=== PATIENT | female | born 1960 | race Caucasian/White ===

== ENCOUNTER → 2019-01-02 10:07 | Outpatient (CLI) | payer OTHER, SELFPAY ==
--- NOTE | 2019-01-02 | DI.MG.S_ITS ---
BILATERAL DIGITAL SCREENING MAMMOGRAM 3D/2D WITH CAD: 01/02/2019 CLINICAL: Routine screening. Comparison is made to exams dated: 07/06/2016 mammogram - [facility], 03/02/2015 mammogram, and 01/12/2014 mammogram - [facility]. There are scattered fibroglandular elements in both breasts. Current study was also evaluated with a Computer Aided Detection (CAD) system. No significant masses, calcifications, or other findings are seen in either breast. There has been no significant interval change. IMPRESSION: NEGATIVE There is no mammographic evidence of malignancy. A 1 year screening mammogram is recommended. This exam was interpreted at Station ID: [id number]. NOTE: For mammograms, a report in lay terms will be sent to the patient. Approximately 15% of breast malignancies will not be visualized mammographically. In the management of a palpable breast mass, a negative mammogram must not discourage biopsy of a clinically suspicious lesion. Electronically Signed By: Floyd lucero/rosa m:01/02/2019 15:06:30 copy to: Shaquille Roldan letter sent: Normal Exam ACR BI-RADS Category 1: Negative 3341F
== END ==
PROVIDERS: Visit Provider Naturopath
DX: Z12.31 Encounter for screening mammogram for malignant neoplasm of breast (principal); Z78.0 Asymptomatic menopausal state; Z82.62 Family history of osteoporosis
CPT/HCPCS: 77063; 77067; 77080

== ENCOUNTER → 2020-02-27 13:42 | Outpatient (CLI) | payer OTHER, SELFPAY ==
[2020-02-27] MEDS: COVID-19 VACC(MODERNA-1)/PF 100 MCG/0.5 ML VIAL IM (14:01)
== END ==
PROVIDERS: Visit Provider Internal Medicine
DX: Z23 Encounter for immunization (principal)
CPT/HCPCS: 0011A; 91301

== ENCOUNTER → 2020-03-25 14:18 | Outpatient (CLI) | payer OTHER, SELFPAY ==
[2020-03-25] MEDS: COVID-19 VACC #2, MRNA(MOD) 100 MCG/0.5 ML VIAL IM (14:23)
== END ==
PROVIDERS: Visit Provider Internal Medicine
DX: Z23 Encounter for immunization (principal)
CPT/HCPCS: 0012A; 91301

== ENCOUNTER → 2020-10-29 08:15 | Outpatient (CLI) | payer OTHER, SELFPAY ==
--- NOTE | 2020-10-29 08:17 | DI.US.S_ITS ---
PROCEDURE: US PELVIC COMPLETE INDICATIONS: LEFT PELVIC PAIN TECHNIQUE: Real-time scanning was performed of the pelvic organs, with image documentation. Additional endovaginal scanning was necessary due to incomplete visualization of the adnexal and endometrial structures by transabdominal scanning. COMPARISON: None. FINDINGS: Uterus: The uterus measures 8.3 x 4.0 x 5.3 cm. Endometrial thickness is 7.1 mm. Uterine echotexture is normal. There is a fluid collection with debris measuring 1.9 x 2.1 x 2.5 cm adjacent to a scar which could be a small seroma but is likely no significance.. Ovaries: The right ovary is not visualized. The left ovary measures 1.7 x 1.6 x 2.1 cm an has a cyst measuring 1.7 x 1.3 x 1.7 cm with a thin septation. Other: No pathologic free abdominal or pelvic fluid. IMPRESSION: 1. Simple left ovarian cyst. 2. No acute abnormality of the pelvis. 3. No hernia or mass is noted in the left lower quadrant. Dictated by: Cachorro Burks M.D. on 10/29/2020 at 16:59 Approved by: Cachorro Burks M.D. on 10/29/2020 at 17:06
== END ==
PROVIDERS: PCP Registered Nurse Diabetes Educator; Referring Provider Registered Nurse Diabetes Educator; Visit Provider Registered Nurse Diabetes Educator
DX: R10.2 Pelvic and perineal pain (principal); N83.292 Other ovarian cyst, left side
CPT/HCPCS: 76830; 76856

== ENCOUNTER → 2020-11-27 10:46 | Outpatient (CLI) | payer OTHER, SELFPAY ==
--- NOTE | 2020-11-27 | DI.MG.S_ITS ---
BILATERAL DIGITAL SCREENING MAMMOGRAM 3D/2D WITH CAD: 11/27/2020 CLINICAL: Routine screening. Comparison is made to exams dated: 07/06/2016 mammogram - [facility], 03/02/2015 mammogram, 01/12/2014 mammogram, 09/13/2012 mammogram, 09/20/2012 mammogram - [facility], and 01/02/2019 mammogram - [facility]. There are scattered fibroglandular elements in both breasts. Current study was also evaluated with a Computer Aided Detection (CAD) system. No significant masses, calcifications, or other findings are seen in either breast. There has been no significant interval change. IMPRESSION: NEGATIVE There is no mammographic evidence of malignancy. A 1 year screening mammogram is recommended. This exam was interpreted at Station ID: [id number]. NOTE: For mammograms, a report in lay terms will be sent to the patient. Approximately 15% of breast malignancies will not be visualized mammographically. In the management of a palpable breast mass, a negative mammogram must not discourage biopsy of a clinically suspicious lesion. Electronically Signed By: Endy lopez/rosa m:11/29/2020 08:38:02 copy to: Shaquille Roldan letter sent: Normal Exam ACR BI-RADS Category 1: Negative 3341F
== END ==
PROVIDERS: PCP Registered Nurse Diabetes Educator; Referring Provider Registered Nurse Diabetes Educator; Visit Provider Registered Nurse Diabetes Educator
DX: Z12.31 Encounter for screening mammogram for malignant neoplasm of breast (principal)
CPT/HCPCS: 77063; 77067

== ENCOUNTER → 2022-03-30 08:22 | Outpatient (CLI) | payer OTHER, SELFPAY ==
[2022-03-30 09:13] LABS: Hemoglobin 13.3 g/dL (12.0-16.0); Mean Corpuscular HGB Conc 33.2 % (30-36); Mean Corpuscular Hemoglobin 30.2 PG (26-34); Platelet Count 315 X10^3/uL (150-400); Red Cell Distribution Width 13.3 % (11.6-14.8)
[2022-03-30 09:31] LABS: Alanine Aminotransferase 29 IU/L (<35); Albumin Globulin Ratio 1.4 (1.0-2.8); Alkaline Phosphatase 80 U/L (38-126); Aspartate Aminotransferase 24 IU/L (14-36); BUN Creatinine Ratio 17.5 (6-22); Bilirubin Total 0.3 mg/dL (0.2-1.3); Blood Urea Nitrogen 14 mg/dL (7-17); Calcium 8.9 mg/dL (8.4-10.2); Carbon Dioxide 27 mmol/L (22-32); Chloride 100 mmol/L (98-107); Cholesterol 220 mg/dL (140-199); Estimated Glomerular Filt Rate > 60 mL/min (>60); Globulin 2.9 g/dL (1.7-4.1); Glucose 87 mg/dL (80-110); HDL Cholesterol 66 mg/dL (40-60); HEMOLYSIS < 15 (0-50); LDL Cholesterol Calculated 105 mg/dL (<100); Potassium 4.4 mmol/L (3.4-5.1); Sodium 134 mmol/L (137-145); Total Protein 6.9 g/dL (6.3-8.2); Triglycerides 245 mg/dL (35-150)
[2022-03-30 10:03] LABS: Ferritin 32 ng/mL (11-264)
[2022-03-31 15:12] LABS: Fecal Immunochemical Test Negative (Negative)
== END ==
PROVIDERS: PCP Registered Nurse Diabetes Educator; Referring Provider Registered Nurse Diabetes Educator; Visit Provider Registered Nurse Diabetes Educator
DX: Z00.00 Encounter for general adult medical examination without abnormal findings (principal); Z12.11 Encounter for screening for malignant neoplasm of colon
CPT/HCPCS: 36415; 80053; 80061; 82274; 82728; 85027

== ENCOUNTER → 2022-05-09 14:56 | Outpatient (CLI) | payer OTHER, SELFPAY ==
--- NOTE | 2022-05-09 14:57 | DI.MG.S_ITS ---
BILATERAL DIGITAL SCREENING MAMMOGRAM 3D/2D WITH CAD: 05/09/2022 CLINICAL: Routine screening. Comparison is made to exams dated: 11/27/2020 mammogram, 01/02/2019 mammogram, and 07/06/2016 mammogram - [facility]. There are scattered areas of fibroglandular density in both breasts (category b / 25%-50% glandular tissue). Current study was also evaluated with a Computer Aided Detection (CAD) system. No significant masses, calcifications, or other findings are seen in either breast. There has been no significant interval change. IMPRESSION: NEGATIVE There is no mammographic evidence of malignancy. A 1 year screening mammogram is recommended. Based on the Tyrer Cuzick model (a risk assessment model) the patient's lifetime risk is 15.1% and her 10 year risk is 6.6%. According to the ACR, ACS, and NCCN guidelines, an annual breast MRI exam along with mammogram is recommended if the patient's lifetime risk is 20% or greater. This exam was interpreted at Station ID: [id number]. NOTE: For mammograms, a report in lay terms will be sent to the patient. Approximately 15% of breast malignancies will not be visualized mammographically. In the management of a palpable breast mass, a negative mammogram must not discourage biopsy of a clinically suspicious lesion. Electronically Signed By: Klaus rodriguez/rosa m:05/10/2022 07:24:15 copy to: Shaquille Roldan letter sent: Normal Exam ACR BI-RADS Category 1: Negative 3341F
--- NOTE | 2022-05-09 14:57 | DI.US.S_ITS ---
PROCEDURE: US PELVIC COMPLETE INDICATIONS: reeval L pelvic pain/ovarian cyst TECHNIQUE: Real-time scanning was performed of the pelvic organs, with image documentation. Additional endovaginal scanning was necessary due to incomplete visualization of the adnexal and endometrial structures by transabdominal scanning. COMPARISON: [facility], US, US PELVIC COMPLETE, 10/29/2020, 8:33. FINDINGS: Uterus: Uterus is anteverted and normal in size at 8.7 x 4.2 x 4.9 cm. The myometrium is heterogeneous. The endometrium measures 5 mm combined thickness. Trace fluid within the endocervical canal. Ovaries: Right ovary is not visualized due to overlying bowel gas. The left ovary measures 3.2 x 1.4 x 2.1 cm, with a calculated ovarian volume of 5 cc. Similar anechoic right ovarian cystic lesion with mildly thickened internal septations, measuring 3.2 x 1.4 x 2.1 centimeter, previously 1.7 x 1.3 x 1.7 centimeter Other: No pathologic free abdominal or pelvic fluid. IMPRESSION: Interval growth of the left ovarian cystic lesion, containing mildly thickened internal septations. Mucinous malignancy not entirely excluded based on growth and appearance. Consider gynecologic oncology consultation. We strive to produce accurate, complete, and clear reports of imaging services. To assist us in improving patient care, this report was composed using standard report templates and voice recognition software. Therefore, it may contain abnormal punctuation, insertions and/or omissions. Occasional wrong-word or sound-alike substitutions may occur. Though we review the report and make efforts to correct it, we do recommend that the report be read carefully in proper context to recognize any text inaccuracies. Dictated by: Rangel Ochoa M.D. on 05/09/2022 at 15:50 Approved by: Rangel Ochoa M.D. on 05/09/2022 at 15:54
== END ==
PROVIDERS: PCP Registered Nurse Diabetes Educator; Referring Provider Registered Nurse Diabetes Educator; Visit Provider Registered Nurse Diabetes Educator
DX: Z12.31 Encounter for screening mammogram for malignant neoplasm of breast (principal); R10.2 Pelvic and perineal pain; N83.291 Other ovarian cyst, right side
CPT/HCPCS: 76830; 76856; 77063; 77067

== ENCOUNTER → 2022-05-23 11:53 | Outpatient (CLI) | payer OTHER, SELFPAY ==
[2022-05-23 12:53] LABS: Lactate Dehydrogenase 217 U/L (120-246)
[2022-05-23 13:24] LABS: Cancer Antigen 125 6.4 U/mL (0-35)
[2022-05-23 13:25] LABS: Carcinoembryonic Antigen < 0.3 ng/mL (0.1-3.0)
[2022-05-24 15:46] LABS: Absolute CD 4 Helper 846 /uL (359-1519); Basophils (Absolute) 0.1 x10E3/uL (0.0-0.2); Eosinophils 3 % (Not Estab.); Eosinophils (Absolute) 0.2 x10E3/uL (0.0-0.4); Hemoglobin 12.9 g/dL (11.1-15.9); Immature Granulocytes 0 % (Not Estab.); Lymphocytes 24 % (Not Estab.); Lymphocytes (Absolute) 1.5 x10E3/uL (0.7-3.1); MCHC 30.4 pg (26.6-33.0); MCHC 33.9 g/dL (31.5-35.7); MCV 89 fL (79-97); Monocytes 6 % (Not Estab.); Monocytes (Absolute) 0.4 x10E3/uL (0.1-0.9); Neutrophils 66 % (Not Estab.); Neutrophils (Absolute) 4.3 x10E3/uL (1.4-7.0); Percent CD 4 Pos Lymph 56.4 % (30.8-58.5); Platelets 360 x10E3/uL (150-450); RDW 12.9 % (11.7-15.4); Red Blood Cells 4.25 x10E6/uL (3.77-5.28); White Blood Cells 6.5 x10E3/uL (3.4-10.8)
[2022-05-26 11:34] LABS: Inhibin B <7.0 pg/mL (0.0-16.9)
== END ==
PROVIDERS: PCP Registered Nurse Diabetes Educator; Referring Provider Registered Nurse Diabetes Educator; Visit Provider Registered Nurse Diabetes Educator
DX: C56.9 Malignant neoplasm of unspecified ovary (principal)
CPT/HCPCS: 36415; 82378; 83520; 83615; 86304; 86361

== ENCOUNTER → 2022-12-04 13:21 | Outpatient (CLI) | payer OTHER, SELFPAY ==
[2022-12-06 19:42] LABS: Anti Thyroglobulin Antibody <1.0 IU/mL (0.0-0.9); Thyroid Peroxidase Antibodies <9 IU/mL (0-34)
== END ==
PROVIDERS: PCP Registered Nurse Diabetes Educator; Referring Provider Naturopath; Visit Provider Naturopath
DX: N95.1 Menopausal and female climacteric states (principal); G47.00 Insomnia, unspecified; E78.5 Hyperlipidemia, unspecified
CPT/HCPCS: 36415; 86376; 86800

== ENCOUNTER → 2023-04-21 09:37 | Outpatient (CLI) | payer OTHER, SELFPAY ==
[2023-04-21 10:20] LABS: Add Manual Diff / Slide Review NO; Basophils Absolute Auto 100 /uL (0-100); Basophils Percent Auto 1.3 % (0-2); Eosinophils Absolute Auto 200 /uL (0-450); Eosinophils Percent Auto 3.7 % (2-4); Hematocrit 40.6 % (36-46); Hemoglobin 13.5 g/dL (12.0-16.0); Lymphocytes Absolute Auto 1800 /uL (1100-4500); Lymphocytes Percent Auto 31.8 % (25-40); Mean Corpuscular HGB Conc 33.3 % (30-36); Mean Corpuscular Volume 90.1 fL (80-100); Monocytes Absolute Auto 400 /uL (0-900); Monocytes Percent Auto 7.6 % (3-14); Neutrophils Absolute Auto 3100 /uL (1500-7000); Neutrophils Percent Auto 55.6 % (50-75); Platelet Count 321 X10^3/uL (150-400); Red Blood Cell Count 4.51 X10^6/uL (4.0-5.2); Red Cell Distribution Width 13.4 % (11.6-14.8); White Blood Cell Count 5.6 X10^3/uL (4.5-11.0)
[2023-04-21 10:28] LABS: Alanine Aminotransferase 35 IU/L (<35); Albumin 4.2 g/dL (3.5-5.0); Albumin Globulin Ratio 1.4 (1.0-2.8); Alkaline Phosphatase 88 U/L (38-126); Aspartate Aminotransferase 27 IU/L (14-36); BUN Creatinine Ratio 19.1 (6-22); Bilirubin Total 0.6 mg/dL (0.2-1.3); Blood Urea Nitrogen 17 mg/dL (7-17); Calcium 9.6 mg/dL (8.4-10.2); Carbon Dioxide 28 mmol/L (22-32); Chloride 104 mmol/L (98-107); Cholesterol 233 mg/dL (140-199); Estimated Glomerular Filt Rate > 60 mL/min (>60); Glucose 95 mg/dL (80-110); HDL Cholesterol 79 mg/dL (40-60); HEMOLYSIS < 15 (0-50); LDL Cholesterol Calculated 124 mg/dL (<100); Potassium 4.5 mmol/L (3.4-5.1); Sodium 136 mmol/L (137-145); Total Protein 7.2 g/dL (6.3-8.2); Triglycerides 149 mg/dL (35-150)
[2023-04-21 10:29] LABS: Hemoglobin A1C% w Est Avg Glu 5.4 % (4.0-6.0)
[2023-04-21 10:48] LABS: Free T4, Direct Thyroxine 1.32 ng/dL (0.78-2.19)
[2023-04-21 11:01] LABS: TSH w/ Reflex to FT4 1.23 uIU/mL (0.47-4.68); Thyroid Stimulating Hormone 1.23 uIU/mL (0.47-4.68)
[2023-04-21 11:04] LABS: Ferritin 33 ng/mL (11-264)
[2023-04-21 11:36] LABS: Folate 11.5 ng/mL (2.76-20.0); Vitamin B12 965 pg/mL (239-931)
[2023-04-21 12:17] LABS: Free T3, Triiodothyronine Free 3.67 pg/mL (2.77-5.27)
[2023-04-21 12:49] LABS: T7 (Free Thyroxine Index) 3.67 (1.65-3.89); Triiodothryronine T3 Uptake 28.7 % (23.5-40.5)
== END ==
LOC: LAB 09:40
PROVIDERS: PCP Registered Nurse Diabetes Educator; Referring Provider Naturopath; Visit Provider Naturopath
DX: N95.1 Menopausal and female climacteric states (principal); E03.9 Hypothyroidism, unspecified; E78.5 Hyperlipidemia, unspecified; G47.00 Insomnia, unspecified
CPT/HCPCS: 36415; 80053; 80061; 82607; 82728; 82746; 83036; 84436; 84439; 84443; 84479; 84481; 85025

== ENCOUNTER → 2023-05-11 15:11 | Outpatient (CLI) | payer OTHER, SELFPAY ==
--- NOTE | 2023-05-11 15:12 | DI.MG.S_ITS ---
BILATERAL DIGITAL SCREENING MAMMOGRAM 3D/2D WITH CAD: 05/11/2023 CLINICAL: Routine screening. Comparison is made to exams dated: 05/09/2022 mammogram, 11/27/2020 mammogram, and 01/02/2019 mammogram - [facility]. There are scattered areas of fibroglandular density in both breasts (category b / 25%-50% glandular tissue). Current study was also evaluated with a Computer Aided Detection (CAD) system. No significant masses, calcifications, or other findings are seen in either breast. There has been no significant interval change. IMPRESSION: NEGATIVE There is no mammographic evidence of malignancy. A 1 year screening mammogram is recommended. Based on the Tyrer Cuzick model (a risk assessment model) the patient's lifetime risk is 15.0% and her 10 year risk is 6.7%. According to the ACR, ACS, and NCCN guidelines, an annual breast MRI exam along with mammogram is recommended if the patient's lifetime risk is 20% or greater. This exam was interpreted at Station ID: [id number]. NOTE: For mammograms, a report in lay terms will be sent to the patient. Approximately 15% of breast malignancies will not be visualized mammographically. In the management of a palpable breast mass, a negative mammogram must not discourage biopsy of a clinically suspicious lesion. Electronically Signed By: Mar ochoa/rosa m:05/11/2023 16:56:45 copy to: Shaquille Roldan letter sent: Normal Exam ACR BI-RADS Category 1: Negative 3341F
== END ==
LOC: MAMMO 15:12
PROVIDERS: PCP Registered Nurse Diabetes Educator; Referring Provider Registered Nurse Diabetes Educator; Visit Provider Registered Nurse Diabetes Educator
DX: Z12.31 Encounter for screening mammogram for malignant neoplasm of breast (principal); R92.323 Mammographic fibroglandular density, bilateral breasts
CPT/HCPCS: 77063; 77067

== ENCOUNTER → 2023-06-22 11:14 | Outpatient (CLI) | payer OTHER, SELFPAY ==
--- NOTE | 2023-06-22 11:15 | DI.US.S_ITS ---
PROCEDURE: US PELVIC COMPLETE INDICATIONS: f/u cyst TECHNIQUE: Real-time scanning was performed of the pelvic organs, with image documentation. Additional endovaginal scanning was necessary due to incomplete visualization of the adnexal and endometrial structures by transabdominal scanning. COMPARISON: [facility], , PELVIC COMPLETE, 10/29/2020, 8:33. [facility], , PELVIC COMPLETE, 05/09/2022, 15:05. FINDINGS: Difficult exam due to overlying bowel gas. Uterus: Uterus is anteverted and normal in size at 9.2 x 6.2 x 3.9 cm. The myometrium is homogeneous. The endometrium measures 6 mm combined thickness. There is trace fluid in the lower uterine segment/endocervical canal. Ovaries: Ovaries are only visualized on trans abdominal scanning. The right ovary measures 3.3 x 2.4 x 1.4 cm, with a calculated ovarian volume of 5.8 cc. The left ovary measures 3.7 x 1.7 x 1.6 cm, with a calculated ovarian volume of 5.3 cc. The ovaries have a normal sonographic appearance. The complex cyst in the left ovary seen on the last exam is no longer visualized on the current exam. Less than 12 follicles can be seen in each ovary. No adnexal masses are seen. Other: No pathologic free abdominal or pelvic fluid. IMPRESSION: 1. Complex cyst in the left ovary seen on the last exam is no longer visualized. Ovaries, however, are only seen on the transabdominal scanning. 2. Trace amount of fluid in the lower uterine segment/endocervical canal. 3. Difficult exam due to abundant bowel gas. We strive to produce accurate, complete, and clear reports of imaging services. To assist us in improving patient care, this report was composed using standard report templates and voice recognition software. Therefore, it may contain abnormal punctuation, insertions and/or omissions. Occasional wrong-word or sound-alike substitutions may occur. Though we review the report and make efforts to correct it, we do recommend that the report be read carefully in proper context to recognize any text inaccuracies. Dictated by: Elena Bah M.D. on 06/23/2023 at 7:32 Approved by: Elena Bah M.D. on 06/24/2023 at 9:12
== END ==
PROVIDERS: PCP Registered Nurse Diabetes Educator; Referring Provider Registered Nurse Diabetes Educator; Visit Provider Registered Nurse Diabetes Educator
DX: N83.209 Unspecified ovarian cyst, unspecified side (principal); R14.3 Flatulence
CPT/HCPCS: 76830; 76856

== ENCOUNTER → 2023-07-26 07:08 | Outpatient (CLI) | payer OTHER, SELFPAY ==
--- NOTE | 2023-07-26 07:09 | DI.US.S_ITS ---
PROCEDURE: US PELVIC COMPLETE INDICATIONS: F/u u/s; previous u/s poorly visualized due to gas TECHNIQUE: Real-time scanning was performed of the pelvic organs, with image documentation. Additional endovaginal scanning was necessary due to incomplete visualization of the adnexal and endometrial structures by transabdominal scanning. COMPARISON: [facility], , US PELVIC COMPLETE, 06/22/2023, 11:53. FINDINGS: Uterus: Uterus is anteverted and normal in size at 7.1 x 5.3 x 4.1 cm. The myometrium is homogeneous. The endometrium measures 6 mm combined thickness. Ovaries: Not visualized. Adnexal regions are grossly unremarkable. Other: No pathologic free abdominal or pelvic fluid. IMPRESSION: Ovaries are not well visualized. Adnexal regions are unremarkable. We strive to produce accurate, complete, and clear reports of imaging services. To assist us in improving patient care, this report was composed using standard report templates and voice recognition software. Therefore, it may contain abnormal punctuation, insertions and/or omissions. Occasional wrong-word or sound-alike substitutions may occur. Though we review the report and make efforts to correct it, we do recommend that the report be read carefully in proper context to recognize any text inaccuracies. Dictated by: Marianne Arteaga M.D. on 07/26/2023 at 12:07 Approved by: Marianne Arteaga M.D. on 07/26/2023 at 12:08
== END ==
PROVIDERS: PCP Registered Nurse Diabetes Educator; Referring Provider Registered Nurse Diabetes Educator; Visit Provider Registered Nurse Diabetes Educator
DX: N83.202 Unspecified ovarian cyst, left side (principal)
CPT/HCPCS: 76830; 76856

== ENCOUNTER → 2023-07-31 08:08 | Outpatient (CLI) | payer OTHER, SELFPAY ==
[2023-07-31 11:05] LABS: Estradiol, Total 189.3 pg/mL
[2023-07-31 11:09] LABS: Ferritin 39 ng/mL (11-264)
[2023-07-31 11:40] LABS: Folate 10.5 ng/mL (2.76-20.0); Vitamin B12 916 pg/mL (239-931)
== END ==
PROVIDERS: PCP Registered Nurse Diabetes Educator; Referring Provider Naturopath; Visit Provider Naturopath
DX: N95.1 Menopausal and female climacteric states (principal); E78.5 Hyperlipidemia, unspecified; G47.00 Insomnia, unspecified
CPT/HCPCS: 36415; 82607; 82670; 82728; 82746; 84144

== ENCOUNTER → 2023-08-24 07:22 | Outpatient (CLI) | payer OTHER, SELFPAY ==
--- NOTE | 2023-08-24 07:23 | DI.MRI.S_ITS ---
PROCEDURE: MR PELVIS WO/W CON INDICATIONS: F/U complex left Ovarian Cyst TECHNIQUE: Coronal HASTE, sagittal breath-hold T2 FSE; axial T1 FSE with and without fat saturation through the pelvis. Optional long- and short-axis uterine nonbreath-hold T2 FSE through the uterus. Sagittal or axial dynamic VIBE during administration of contrast. Post-contrast axial or coronal VIBE/2-D FLASH with fat saturation from the iliac crests to the symphysis. Optional diffusion weighted imaging and ADC may be performed. COMPARISON: [facility], , PELVIC COMPLETE, 06/22/2023, 11:53. [facility], , PELVIC COMPLETE, 07/26/2023, 7:28. FINDINGS: Image quality: Excellent. Uterus: Uterus is normal in size. Endometrium is normal in thickness. Junctional zone is normal in thickness at 12 mm or less. scar present. Endometrium measures 1 mm. Adnexa: Left ovarian cystic lesion measuring approximately 1.7 x 1.3 cm. There is a thick, enhancing internal septation and an asymmetric thickened wall. No papillary projections. Urinary system: Bladder wall is normal in thickness. Distal ureters are non distended. Urethra appears normal in morphology. Nodes and vessels: No pelvic or inguinal adenopathy by size criteria. Iliac vessels are normal in size. Bowel and peritoneum: No pathologic free pelvic fluid. Inferior colon and small bowel loops are normal in caliber. Soft tissues: No inguinal hernias. No findings of pelvic floor incompetence in the absence of provocation. Bones: Marrow demonstrates normal overall signal. IMPRESSION: 1.7 x 1.3 cm left ovarian cystic lesion with moderate internal complexity. O-RADS 3. Dictated by: Rangel Ochoa M.D. on 08/24/2023 at 8:55 Approved by: Rangel Ochoa M.D. on 08/24/2023 at 8:59
== END ==
LOC: MRI 07:22
PROVIDERS: PCP Registered Nurse Diabetes Educator; Referring Provider Registered Nurse Diabetes Educator; Visit Provider Registered Nurse Diabetes Educator
DX: N83.202 Unspecified ovarian cyst, left side (principal)
CPT/HCPCS: 72197; A9579

== ENCOUNTER → 2024-01-09 15:52 | Outpatient (CLI) | payer OTHER, SELFPAY ==
--- NOTE | 2024-01-09 15:54 | DI.RAD.S_ITS ---
PROCEDURE: XR FOOT RT MIN 3V INDICATIONS: right foot pain TECHNIQUE: 3 views of the foot were acquired. COMPARISON: None. FINDINGS: Bones: No fractures or dislocations. No suspicious bony lesions. Soft tissues: No tibiotalar joint effusion. Achilles tendon appears normal. IMPRESSION: No acute bony abnormality. Dictated by: Endy Hernandez M.D. on 01/09/2024 at 23:37 Approved by: Endy Hernandez M.D. on 01/09/2024 at 23:39
== END ==
PROVIDERS: PCP Registered Nurse Diabetes Educator; Referring Provider Physician Assistant; Visit Provider Physician Assistant
DX: M79.671 Pain in right foot (principal); M70.80 Other soft tissue disorders related to use, overuse and pressure of unspecified site
CPT/HCPCS: 73630

== ENCOUNTER → 2024-03-12 07:02 | Outpatient (CLI) | payer OTHER, SELFPAY ==
[2024-03-12 08:25] LABS: Thyroid Stimulating Hormone 1.71 uIU/mL (0.47-4.68)
[2024-03-12 08:26] LABS: Estradiol, Total 108.8 pg/mL
[2024-03-12 08:28] LABS: Cancer Antigen 125 6.7 U/mL (0-35)
[2024-03-12 08:32] LABS: Ferritin 44 ng/mL (11-264)
[2024-03-12 09:01] LABS: Folate 7.8 ng/mL (2.76-20.0); Vitamin B12 920 pg/mL (239-931)
== END ==
PROVIDERS: PCP Registered Nurse Diabetes Educator; Referring Provider Naturopath; Visit Provider Naturopath
DX: M25.579 Pain in unspecified ankle and joints of unspecified foot (principal); N95.1 Menopausal and female climacteric states; E61.1 Iron deficiency
CPT/HCPCS: 36415; 82607; 82670; 82728; 82746; 84443; 86304

== ENCOUNTER → 2024-05-24 | Outpatient (CLI) | payer OTHER, SELFPAY ==
--- NOTE | 2024-05-24 11:18 | DI.MG.S_ITS ---
MM screening mammo BI: 05/24/2024. BI-RADS: 1 CLINICAL: 64-year old female for bilateral screening mammogram. Tyrer-Cuzick lifetime risk of 9.1%. No personal or first-degree family history of breast cancer. Current reported family history of breast cancer: maternal aunt. PRIOR EXAMS 05/11/2023, 05/09/2022, 11/27/2020, 01/02/2019, 07/06/2016. MAMMOGRAPHY TECHNIQUE: 2D and 3D (tomosynthesis) digital mammographic views obtained, with additional images as needed for full coverage. Current study was also evaluated with a Computer Aided Detection (CAD) system. DENSITY B. There are scattered areas of fibroglandular density. MAMMOGRAPHY FINDINGS Bilateral: No suspicious mass, asymmetry, microcalcification, or other abnormality seen. No significant change from comparison. IMPRESSION: * No evidence of malignancy. RECOMMENDATIONS Bilateral * Annual screening mammography. OVERALL ASSESSMENT CATEGORY BI-RADS-1: Negative. The [employer] recommends annual screening mammography beginning at age 40 for women with average risk of breast cancer. ELECTRONICALLY SIGNED: Cindy Ford M.D. on 05/26/2024 at 01:49:07 PM PT Interpreting Station ID: [id number]
== END ==
PROVIDERS: PCP Registered Nurse Diabetes Educator; Referring Provider Registered Nurse Diabetes Educator; Visit Provider Registered Nurse Diabetes Educator
DX: Z12.31 Encounter for screening mammogram for malignant neoplasm of breast (principal); Z80.3 Family history of malignant neoplasm of breast
CPT/HCPCS: 77063; 77067

== ENCOUNTER → 2024-06-26 06:54 | Outpatient (CLI) | payer OTHER, SELFPAY ==
[2024-06-26 07:45] LABS: Add Manual Diff / Slide Review NO; Basophils Absolute Auto 100 /uL (0-100); Basophils Percent Auto 1.4 % (0-2); Eosinophils Absolute Auto 200 /uL (0-450); Eosinophils Percent Auto 4.1 % (2-4); Hematocrit 39.8 % (36-46); Hemoglobin 13.4 g/dL (12.0-16.0); Lymphocytes Absolute Auto 1800 /uL (1100-4500); Lymphocytes Percent Auto 31.9 % (25-40); Mean Corpuscular HGB Conc 33.8 % (30-36); Mean Corpuscular Hemoglobin 30.8 PG (26-34); Mean Corpuscular Volume 91.3 fL (80-100); Monocytes Absolute Auto 400 /uL (0-900); Monocytes Percent Auto 7.4 % (3-14); Neutrophils Absolute Auto 3000 /uL (1500-7000); Neutrophils Percent Auto 55.2 % (50-75); Platelet Count 294 X10^3/uL (150-400); Red Blood Cell Count 4.36 X10^6/uL (4.0-5.2); Red Cell Distribution Width 13.2 % (11.6-14.8); White Blood Cell Count 5.5 X10^3/uL (4.5-11.0)
[2024-06-26 08:25] LABS: Alanine Aminotransferase 27 IU/L (<35); Albumin 4.2 g/dL (3.5-5.0); Albumin Globulin Ratio 1.6 (1.0-2.8); Alkaline Phosphatase 84 U/L (38-126); Aspartate Aminotransferase 28 IU/L (14-36); BUN Creatinine Ratio 17.5 (6-22); Bilirubin Total 0.4 mg/dL (0.2-1.3); Blood Urea Nitrogen 17 mg/dL (7-17); Calcium 9.6 mg/dL (8.4-10.2); Carbon Dioxide 24 mmol/L (22-32); Chloride 103 mmol/L (98-107); Cholesterol 229 mg/dL (140-199); Estimated Glomerular Filt Rate > 60 mL/min (>60); Globulin 2.6 g/dL (1.7-4.1); Glucose 93 mg/dL (70-99); HDL Cholesterol 65 mg/dL (40-60); HEMOLYSIS < 15 (0-50); LDL Cholesterol Calculated 126 mg/dL (<100); Potassium 4.6 mmol/L (3.4-5.1); Sodium 134 mmol/L (137-145); Total Protein 6.8 g/dL (6.3-8.2); Triglycerides 192 mg/dL (35-150)
[2024-06-26 08:45] LABS: Thyroid Stimulating Hormone 1.74 uIU/mL (0.47-4.68)
[2024-06-26 09:00] LABS: Ferritin 39 ng/mL (11-264)
[2024-06-26 09:21] LABS: Folate 7.3 ng/mL (2.76-20.0); Vitamin B12 911 pg/mL (239-931)
== END ==
LOC: LAB 06:56
PROVIDERS: PCP Registered Nurse Diabetes Educator; Referring Provider Naturopath; Visit Provider Naturopath
DX: N95.1 Menopausal and female climacteric states (principal); E61.1 Iron deficiency; M25.579 Pain in unspecified ankle and joints of unspecified foot; G47.00 Insomnia, unspecified
CPT/HCPCS: 36415; 80053; 80061; 82607; 82728; 82746; 84443; 85025

== ENCOUNTER → 2024-11-11 07:19 | Outpatient (CLI) | payer OTHER, SELFPAY ==
[2024-11-11 08:21] LABS: Progesterone, Total 34.90 ng/mL
[2024-11-11 08:36] LABS: Estradiol, Total 150.5 pg/mL
== END ==
PROVIDERS: PCP Registered Nurse Diabetes Educator; Referring Provider Registered Nurse Diabetes Educator; Visit Provider Naturopath
DX: E61.1 Iron deficiency (principal); M25.579 Pain in unspecified ankle and joints of unspecified foot; N95.1 Menopausal and female climacteric states
CPT/HCPCS: 36415; 82670; 84144

== ENCOUNTER → 2025-01-30 13:38 | Outpatient (CLI) | payer OTHER, SELFPAY ==
--- NOTE | 2025-01-30 13:39 | DI.RAD.S_ITS ---
PROCEDURE: XR LUMBAR SPINE 2-3V INDICATIONS: eval R hip pain and LBP TECHNIQUE: 3 views of the lumbar spine were acquired. COMPARISON: None. 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 4 [id number] lumbar vertebral bodies. Transitional L5 vertebral body. Normal alignment. No vertebral body compression fractures. No suspicious bony lesions. Rudimentary disc at L5-S1. Mild to moderate L4-5 disc narrowing. Facet sclerosis is noted at L4-5 and L5-S1. Soft tissues: Overlying bowel gas pattern is normal. No suspicious soft tissue calcifications. IMPRESSION: No acute bony abnormality. Dictated by: Leighann Zhou M.D. on 02/01/2025 at 20:00 Approved by: Leighann Zhou M.D. on 02/01/2025 at 20:02
--- NOTE | 2025-01-30 13:39 | DI.RAD.S_ITS ---
PROCEDURE: XR HIP W PEL IF DONE RT 2V INDICATIONS: eval R hip pain and LBP TECHNIQUE: AP pelvis with lateral view(s) of the left hip(s). COMPARISON: None. FINDINGS: Bones: No fractures or dislocations. Pelvic ring appears intact. No suspicious bony lesions. Soft tissues: The visualized bowel gas pattern is normal. No suspicious soft tissue calcifications. IMPRESSION: No acute bony abnormality. Dictated by: Leighann Zhou M.D. on 02/01/2025 at 19:58 Approved by: Leighann Zhou M.D. on 02/01/2025 at 19:59
== END ==
PROVIDERS: PCP Registered Nurse Diabetes Educator; Referring Provider Registered Nurse Diabetes Educator; Visit Provider Registered Nurse Diabetes Educator
DX: M25.551 Pain in right hip (principal); M54.50 Low back pain, unspecified; G89.29 Other chronic pain
CPT/HCPCS: 72100; 73502